=== PATIENT | female | born 1975 | race Caucasian/White ===

== ENCOUNTER 2024-12-03 13:04 | Outpatient (AMB) | payer BC, SELFPAY ==
--- NOTE | 2024-12-03 13:05 | MHC.PC.OV ---
Vital Signs 12/03/24 13:08 Height 5 ft 5.75 in Weight 153 lb BMI 24.9 BP 138/80 Respiration 14 Pulse 96 Pulse Source Pulse Oximeter Temp 98.0 F Temp Source Temporal Artery Scan Pulse Oximetry (%) 99 Oxygen Delivery Method Room Air Intake Visit Reasons: Establish [facility] [place] Director Of Training Required: No Accompanied by: Self / Same As Patient Allergies No Known Allergies Allergy (Verified 12/03/24 13:25) Medication List - Last Reconciled 12/03/24 by Evelyn Parsons PA-C lisinopril 5 mg PO DAILY oxymetazoline 1% (Rhofade) 1 appl topical QAM Tobacco use date assessed: 12/03/24 Dental Screening Dental Screen Date: 12/03/24 Did you have a dental visit in the last 12 months?: Yes Did you have a dental problem in the last 6 months where you did not have access to dental care?: No Was dental information given to patient?: Patient has dentist HPI Establish [facility] [place] HPI Details The patient is a 49-year-old female presenting to [facility] and for an annual physical exam. She decided to switch providers due to dissatisfaction with her previous practice at [facility], citing difficulty scheduling appointments and long wait times. The patient's last physical was over a year ago, at which time her blood pressure was noted to be high. She currently takes lisinopril for hypertension, and her blood pressure is well-controlled. She reports concerns about her toenails, which she believes have had a fungus since [employer], and currently uses vinegar on them. A talkback host previously tested a clipping that came back negative for fungus. She also notes that two of her toes are swollen. She recently saw a talkback host for a swollen sweat gland on her foot, which was treated with acid and has since resolved. The patient has a history of rosacea, for which she was prescribed Rhofade cream. She has not been taking it recently as her symptoms have improved since she stopped drinking alcohol about a year and a half ago. She is interested in a referral to a new nursing program manager for her rosacea and a few other skin spots of concern. 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 She is a former smoker, having quit a long time ago. Her training for a [employer] was recently impacted by a hip flexor strain. The patient has declined a mammogram and colonoscopy at this visit. She also declined cervical cancer screening. There is no family history of colon, breast, cervical, or thyroid cancer. Social History - Tobacco Use: Former smoker, quit a long time ago. - Alcohol Use: Reports she was drinking heavily but stopped about a year and a half ago. - Exercise: Reports she is trying to be healthier, ran a 5K, and is training for another one. - Diet: Reports being on a diet and trying to make better food choices. [facility] Medical History (Updated 12/03/24 @ 14:46 by Evelyn Parsons PA-C) Cervical cancer screening declined (~12/03/24) Psoriasis Hypertension Annual physical exam Thyroid nodule Rosacea Colon cancer screening declined (~12/03/24) Mammogram declined (~12/03/24) Onychomycosis Family History Father BP (high blood pressure) CHF (congestive heart failure) Mother No problems noted. Social History Housing: House Alcohol intake: current Alcohol intake frequency: does not drink Patient Tobacco Use Status: Former Tobacco user service: No Current occupational status: employed Cognitive needs: No Hearing needs: No Vision needs: Yes (rx glasses) Questionnaire PHQ-9 Over the last 2 weeks, how often have you been bothered by any of the following problems? 1. Little interest or pleasure in doing things: not at all 2. Feeling down, depressed, or hopeless: not at all 3. Trouble falling or staying asleep, or sleeping too much: not at all 4. Feeling tired or having little energy: not at all 5. Poor appetite or overeating: not at all 6. Feeling bad about yourself - or that you are a failure or have let yourself or your family down: not at all 7. Trouble concentrating on things, such as reading the newspaper or watching television: not at all 8. Moving or speaking so slowly that other people could have noticed. Or the opposite - being so fidgety or restless that you have been moving around a lot more than usual: not at all 9. Thoughts that you would be better off or of hurting yourself in some way: not at all Total score: 0 Depression Screening Interpretation: Negative Depression Screening Done: Yes 03625 - PHQ-9 Billing: Yes Source: Developed by Drs. Javed Lee, Uma Mon, Lázaro Kennedy and colleagues, with an educational shelly from [employer]. Thrive Questionnaire Date Thrive assessed: 12/03/24 I am a: Patient What is your living situation today?: I have a steady place to live Within the past 12 months, did the food you bought not last and you didn't have the money to get more?: Never true Within the past 12 months, did you worry whether your food would run out before you got money to buy more?: Never true Do you have trouble paying for medicines?: No Do you have trouble getting transportation to medical appointments?: No Do you have trouble paying your heating and electricity bill?: No Do you have trouble taking care of your child, family member or friend?: No Do you have trouble with day-to-day activities such as bathing, preparing meals, shopping, managing finances, etc.?: No Are you currently unemployed and looking for a job?: No Are you interested in more education?: No Please select the resources that you would like help with: None THRIVE Score: 0 AUDIT C Alcohol Use Questionnaire (AUDIT-C) 1. How often do you have a drink containing alcohol?: Never 3. How often do you have six or more drinks on one occasion?: Never Total Score: 0 Score Reviewed/Action Taken: No RIK-7 AMB Questionnaire RIK-7 Date RIK - 7 assessed: 12/03/24 Feeling nervous, anxious, or on edge: 0 = Not at all Not being able to stop or control worryin = Not at all Worrying too much about different things: 0 = Not at all Trouble relaxin = Not at all Being so restless that it is hard to sit still: 0 = Not at all Becoming easily annoyed or irritable: 0 = Not at all Feeling afraid as if something awful might happen: 0 = Not at all Total RIK-7 score (0-4 normal; 5-9 mild; 10-14 moderate; 15-21 severe): 0 Source: Developed by Drs. Javed Lee, Uma Mon, Lázaro Kennedy and colleagues, with an educational shelly from [employer]. RIK-7 Assessment Billing RIK-7 Assessment Tool: RIK-7 Assessment 01205 Review of Systems Const Details: - Constitutional: Denies unintentional weight loss. - HEENT: Reports psoriasis in her ear. - Denies problems with hearing or vision. - Skin: Reports rosacea on her face, which has improved. - Reports having a couple of skin spots of concern. - GI: Denies abdominal pain, black or bloody stools. - Extremities: Reports swelling in two toes. All systems reviewed & are unremarkable except as noted in HPI and below Physical exam (Primary Care) Vital Signs: Last Vital Signs Temp 98.0 F 12/03/24 13:08 Pulse 96 12/03/24 13:08 Resp 14 12/03/24 13:08 BP 138/80 12/03/24 13:08 Pulse Ox 99 12/03/24 13:08 Oxygen Delivery Method Room Air 12/03/24 13:08 Care Plan Goal for BP management: <140/90 at Goal BMI result Body Mass Index 24.9 Normal BMI Tobacco/Smoking Status: Tobacco use Status Tobacco use date assessed 12/03/24 12/03/24 13:15 Patient Tobacco Use Status Former Tobacco user 12/03/24 13:15 PHQ-9: PHQ-9 Score PHQ-9: Total score 0 12/03/24 13:26 Depression Screening Interpretation: Negative Thrive Assessment: Date of Thrive Assessment Date Thrive assessed 12/03/24 12/03/24 13:15 Const Other: Appearance: Alert. Oriented X3. No acute distress. Head: Normal external exam. Normocephalic. Atraumatic. Eyes: Pupils are equal, round, and reactive to light. Extraocular movements intact. Conjunctiva and sclera normal. Eyelids normal. Ears: External auditory canal normal. Tympanic membranes normal. Psoriasis noted in the ear. Throat: Pharynx normal. Uvula midline. Moist mucous membranes. Neck: Normal inspection. Neck supple. Full range of motion. No adenopathy. Possible thyroid nodule. No meningeal signs. No neck mass noted. Cardiovascular: Normal heart rate and rhythm. Heart sound normal. No murmurs noted. Pulses normal throughout. Respiratory: No respiratory distress. Painless inspiration. Breath sounds normal. No wheezes/rales/rhonchi noted. Chest nontender. No accessory muscle usage noted or decreased air movement noted. Abdomen: Soft and nontender. Bowel sounds normal in all 4 quadrants. No distention noted. No organomegaly noted. No visible injury noted. Back: No costovertebral angle tenderness. Full range of motion noted. Skin: Skin warm and dry. Normal skin color. Normal skin turgor. No rashes/lesions/lacerations noted. Extremities: No lower extremity edema. Extremities exhibit normal range of motion. Extremities nontender. Two toes noted to be swollen. Neuro: Oriented X 3. No motor deficit. No sensory deficit. Reflexes normal. Office Procedures Flu Questionnaire Does the patient have a severe egg allergy?: No Does the patient have severe life threatening allergies?: No Does the patient have a fever or illness today?: No Has the patient ever had Guillain-Eaton Syndrome?: No Has the patient ever had any past reaction to a flu shot?: No Immunizations Fluarix [id number] (PF) 45 mcg (15 mcg x 3)/0.5 mL IM syringe Performing Provider: Evelyn Parsons PA-C [facility] Documented (not given) by: LINDA Iraheta on 12/03/24 13:16 Reason Not Given: Patient Refused Results Reviewed Results Reviewed: - Tests and diagnostics: A prior toenail clipping tested by a talkback host was negative for fungus. Coding Level of Care Code New Pt Level 4 (05602) New Pt Prev Care 40-64y(11621) Diagnoses Annual physical exam Z00.00 Hypertension I10 Onychomycosis B35.1 Rosacea L71.9 Psoriasis L40.9 Thyroid nodule E04.1 Colon cancer screening declined Z53.20 Mammogram declined Z53.20 Cervical cancer screening declined Z53.20 Additional Codes RIK-7 Assessment Billing - RIK-7 Assessment Tool: RIK-7 Assessment 79086 ([id number]) PHQ-9 - 14297 - PHQ-9 Billing: Yes ([id number]) Time Spent (min) 60 Assessment & Plan Assessment & Plan (1) Annual physical exam: Code(s): Z00.00 - Encounter for general adult medical examination without abnormal findings Category: Medical Plan: The patient is establishing care. Comprehensive lab work will be ordered, including a CBC, CMP, magnesium, vitamin B12, vitamin D, thyroid panel, hemoglobin A1c, cholesterol panel, and urinalysis. The patient declined a mammogram and colonoscopy at this time, which will be deferred and re-addressed at a future visit. She also deferred a cervical cancer screening. The patient will follow up annually or as needed. (2) Hypertension: Code(s): I10 - Essential (primary) hypertension Category: Medical Plan: The patient's blood pressure is well controlled on lisinopril. A refill for lisinopril will be sent to the pharmacy. (3) Onychomycosis: Code(s): B35.1 - Tinea unguium Category: Medical Plan: The patient has a long-standing history of concern for toenail fungus, with associated swelling of two toes noted on exam. A referral will be placed to a podiatry office in [place] for further evaluation and management. (4) Rosacea: Code(s): L71.9 - Rosacea, unspecified Category: Medical Plan: The patient has a history of rosacea, which has improved since cessation of alcohol. She has some skin spots she is also concerned about. A referral to [facility] will be provided for further evaluation. (5) Psoriasis: Code(s): L40.9 - Psoriasis, unspecified Category: Medical Plan: The patient reports intermittent psoriasis in her ear, which she treats as needed with a steroid cream. She will continue to use the cream as needed and can request a refill if necessary. (6) Thyroid nodule: Code(s): E04.1 - Nontoxic single thyroid nodule Category: Medical Plan: A possible small thyroid nodule was palpated on physical exam. A thyroid ultrasound will be ordered to further evaluate this finding. If the ultrasound is abnormal, a referral will be made to endocrinology. (7) Colon cancer screening declined: Onset Date: ~12/03/24 Code(s): Z53.20 - Procedure and treatment not carried out because of patient's decision for unspecified reasons Category: Medical Plan: Patient understands the importance of colon cancer screening. Patient declines at this time. (8) Mammogram declined: Onset Date: ~12/03/24 Code(s): Z53.20 - Procedure and treatment not carried out because of patient's decision for unspecified reasons Category: Medical Plan: Patient understands the importance of mammogram screening. Patient declines at this time. (9) Cervical cancer screening declined: Onset Date: ~12/03/24 Code(s): Z53.20 - Procedure and treatment not carried out because of patient's decision for unspecified reasons Category: Medical Plan: Patient understands the importance of cervical cancer screening. Patient declines at this time. Plan Plan Patient was informed and verbally consented to the use of an ambient scribe for clinic note documentation during this visit. 1. Annual Physical Exam / Health Maintenance The patient is establishing care. Comprehensive lab work will be ordered, including a CBC, CMP, magnesium, vitamin B12, vitamin D, thyroid panel, hemoglobin A1c, cholesterol panel, and urinalysis. The patient declined a mammogram and colonoscopy at this time, which will be deferred and re-addressed at a future visit. She also deferred a cervical cancer screening. The patient will follow up annually or as needed. 2. Hypertension The patient's blood pressure is well controlled on lisinopril. A refill for lisinopril will be sent to the pharmacy. 3. Onychomycosis, Suspected The patient has a long-standing history of concern for toenail fungus, with associated swelling of two toes noted on exam. A referral will be placed to a podiatry office in [place] for further evaluation and management. 4. Thyroid Nodule, Suspected A possible small thyroid nodule was palpated on physical exam. A thyroid ultrasound will be ordered to further evaluate this finding. If the ultrasound is abnormal, a referral will be made to endocrinology. 5. Rosacea The patient has a history of rosacea, which has improved since cessation of alcohol. She has some skin spots she is also concerned about. A referral to [facility] will be provided for further evaluation. 6. Psoriasis Of External Ear The patient reports intermittent psoriasis in her ear, which she treats as needed with a steroid cream. She will continue to use the cream as needed and can request a refill if necessary. I introduced myself and established care with the patient, who was seeking a new provider after negative experiences at her prior clinic. We agreed to conduct this visit as her annual physical and discussed the orders for comprehensive lab work. I addressed her concerns about her toenails and am placing a referral to podiatry. I informed the patient of a possible thyroid nodule found on exam and explained the plan to order a thyroid ultrasound for further investigation. I explained that if the ultrasound is abnormal, I will refer her to an plant control operator. Regarding her dermatological concerns, I am placing a referral to a nursing program manager for her rosacea and other spots of concern. We discussed preventative screenings, and I documented her decision to decline a mammogram and colonoscopy at this time, with a plan to revisit this in the future. I provided the patient with instructions for her fasting lab work and advised her on the expected timeline for her referrals to call. I encouraged her to sign up for the patient portal for ease of communication and refill requests. Orders: Orders Influenza [id number] Immunization Today Z23 - Encounter for immunization C Reactive Protein Today Z00.00 - Encounter for general adult medical examination without abnormal findings Liver Panel Today Z00.00 - Encounter for general adult medical examination without abnormal findings Magnesium Today Z00.00 - Encounter for general adult medical examination without abnormal findings Vitamin D 25-OH Total Today Z00.00 - Encounter for general adult medical examination without abnormal findings US thyroid Today E04.1 - Nontoxic single thyroid nodule Complete Blood Count Auto Diff Today Z00.00 - Encounter for general adult medical examination without abnormal findings Comprehensive [place]. Panel Fast Today Z00.00 - Encounter for general adult medical examination without abnormal findings Vitamin B12 and Folate Today Z00.00 - Encounter for general adult medical examination without abnormal findings TSH reflex Free T4 Today Z00.00 - Encounter for general adult medical examination without abnormal findings UA CC w/rflx Micro + Cult Today Z00.00 - Encounter for general adult medical examination without abnormal findings Hemoglobin A1c Today Z00.00 - Encounter for general adult medical examination without abnormal findings Lipid Panel Today Z00.00 - Encounter for general adult medical examination without abnormal findings Referrals Podiatry Referral B35.1 - Tinea unguium Dermatology Referral B35.1 - Tinea unguium, L71.9 - Rosacea, unspecified Medications: New lisinopril 5 mg PO DAILY 90 tabs 3RF Patient Instructions: - Please go to the lab for blood work. - You must fast for 10 to 12 hours before the test, meaning nothing to eat or drink except for water or black coffee. - A referral has been sent for a thyroid ultrasound. - Please try to get your blood work done before the ultrasound appointment. - A referral has been sent to a talkback host for your toenail concerns. - You should receive a call to schedule these appointments within a month. - A prescription refill for lisinopril will be sent to your pharmacy. - A referral to a nursing program manager ([facility]) has been placed. - You may call them to schedule an appointment. - Please sign up for the patient portal using your email and medical record number to easily request refills and communicate with the office. - Please follow up in one year for your next annual physical, or sooner if any new issues arise.
[2024-12-03 13:08] VITALS: BP 138/80; PULSE 96; RESP 14; TEMP 36.7; O2SAT 99; BMI 24.9
--- OUTSIDE RECORDS SUMMARY | 2024-12-03 16:33 | XMS_ITS | Clinical Summary ---
Author Organization [address] Address [address] [place] [phone] Phone Care Team Providers Care Electric Tool Repairer Name Role Phone Danay Renteria MD Primary Care Prov ider Allergies No known active allergies Medications oxymetazoline (Rhofade) 1 % cream 11/25/2021 Active lisinopriL (PRINIVIL,ZESTRI L) 5 mg tablet Take 1 tablet (5 mg total) by mouth 1 (one) time each day. 90 each 1 07/25/2024 Active Active Problems Problem Noted Date Diagnosed Date Overweight (BMI 25.0-29.9) 07/25/2024 Elevated LFTs 07/05/2023 Essential hypertension 06/08/2023 Assessment & Plan (01/17/2024 3:06 PM EST): Blood pressure is well-controlled on lisinopril 5 mg. Currently 132/70. Will continue same medication. She is encouraged to follow a low-salt diet. Will recheck CMP and lipid profile before her next visit. Will follow-up in 6 months. Orders: Comprehensive metabolic panel; Future Lipid panel with reflex to direct LDL; Future Medically noncompliant 01/25/2022 Overview (12/13/2023): Refuses screening mammo and NET LEAD ARCHITECT exam Psoriasis of scalp 09/30/2014 Overview (12/13/2023): Also ears, used to see Derm [place] Rosacea 09/30/2014 Overview (12/13/2023): controlled Encounters Date Type Department Care Team Description 11/12/2024 8:45 AM EDT Office Visit Orthopedic Surgery [facility] [address] [phone] Sebastián Johnson, DPM Metatarsalgia of left foot (Primary Dx); Eccrine poroma of foot, left; Pain in both feet 10/29/2024 9:15 AM EDT Office Visit Orthopedic Surgery [place] [phone] [phone] Sebastián Johnson, DPM Pain in both feet (Primary Dx); Metatarsalgia of left foot; Eccrine poroma of foot, left; Dermatophytosis, nail 10/24/2024 2:30 PM EDT Office Visit Orthopedic [facility] [address] [phone] Sebastián Johnson, DPM Pain in both feet (Primary Dx); Plantar wart of left foot from Last 3 Months Immunizations Immunization Administration Dates Next Due Pfizer SARS-CoV-2 COVID-19, mRNA, LNP-S, preservative free 06/21/2020 Tdap Tetanus diptheria acell ular pertussis (Boostrix; Adacel) 7yo and older 10/22/2020,08/04/2010 Surgical History Surgery Date Site/Laterality Comments WISDOM TOOTH EXTRACTION PROCEDURE: HISTORICAL WISDOM TEETH EXTRACTION Medical History Medical History Date Comments Other infants, 2,500 or more grams(765.19) DX:Other infants, 2, 500 or more grams(765.19); COMMENT: 36 weeks Rosacea 09/30/2014 DX:Rosacea; COMM ENT: controlled Psoriasis of scalp 09/30/2014 DX:Psoriasis of scalp; COMMENT: Also ears, used to see Derm [place] Medically noncompliant 01/25/2022 DX:Medica lly noncompliant; COMMENT: Refuses screening mammo and NET LEAD ARCHITECT exam Essential hypertension 06/08/2023 DX:Essent ial hypertension Elevated LFTs 07/05/2023 DX:Elevated LFTs Family History Medical History Relation Name Comments Hypertension Brother Clayton No Known Problems Daughter : 01/29/2006 Hypertension Father Other: Asbestos Maternal Grandfather No Known Problems Maternal Grandmother No Known Problems Mother Stroke Paternal Grandfather survive d this event No Known Problems Son : 08/07/2009 Breast cancer Neg Hx Colon cancer Neg Hx Coronary artery disease Neg Hx Diabetes Neg Hx Heart attack Neg Hx Ovarian cancer Neg Hx Relation Name Status Comments Brother Clayton Alive Daughter : 01/29/2006 Alive Father Alive Maternal Grandfather Maternal Grandmother Mother Alive Paternal Grandfather Paternal Grandmother Son : 08/07/2009 Alive Social History Tobacco Use Types Packs/Day Years Used Date Smoking Tobacco: Former Cigarettes Q uit: 02/07/2001 Smokeless Tobacco: Never Tobacco Cessation:Counseling Given: Not Answered Alcohol Use Standard Drinks/Week Comments Yes 0 (1 standard drink = 0.6 oz pur e alcohol) Housing Instability Answer Date Recorde d Are you worried that in the next 2 months you may not have stable housing? No 01/17/2024 Food Access & Nutrition Answer Date Rec orded Do you have access to a vari ety of food including fruits and vegetables? Yes 01/17/2024 Access to Healthcare Answer Date Record ed Within the last 3 months, ho w many times did you visit the emergency department for your medical care? 0 01/17/2024 Health Literacy Answer Date Recorded How often do you need to hav e someone help you when you read instructions, pamphlets, or other written material from your doctor or pharmacy? Never 01/17/2024 Caregiver: How often do you need to have someone help you when you read instructions, pamphlets, or other written material from your doctor or pharmacy? Not on file 01/17/2024 Financial Risk Answer Date Recorded How hard is it for you to pa y for the very basics like food, housing, medical care, and air conditioning / heating? Not very hard 01/17/2024 Transportation Answer Date Recorded Has the lack of transportati on kept you from meetings, work, or from getting things needed for daily living? No Has the lack of transportati on kept you from medical appointments or from getting medications? No 01/17/2024 Social Isolation Answer Date Recorded How often do you feel lonely or isolated from th ose around you? Never 01/17/2024 Food Risk Answer Date Recorded Within the past 12 months we worried whether our food would run out before we got money to buy more. Never true 01/17/2024 Within the past 12 months th e food we bought just didn't last and we didn't have money to get more. Never true 01/17/2024 Dependent Care Answer Date Recorded Do you need help finding or paying for care for your loved ones. For example, early childhood services coordinator or elderly care for an older adult? No 01/17/2024 Education Answer Date Recorded Do you think completing more education or training, like finishing a GED, going to college, or learning a trade, would be helpful for you? No 01/17/2024 Employment and Income Answer Date Recor ded During the last four weeks, have you been actively looking for work? No 01/17/2024 Living Situation Answer Date Recorded What is your living situation? Unrecognized valu e 01/17/2024 Comments No Sex and Gender Information Value Date Recorded Sex Assigned at Not on file Legal Sex Female 4:03 AM EST Gender Identity Not on file Sexual Orientation Not on file Obstetrics History Last Filed Vital Signs Vital Sign Reading Time Taken Comments Blood Pressure 130/77 07/25/2024 7:55 AM EDT Pulse 87 07/25/2024 7:55 AM EDT Temperature 35.6 C (96.1 F) 07/25/2024 7:55 AM EDT Respiratory Rate 14 07/25/2024 7:55 AM EDT Oxygen Saturation 100% 07/25/2024 7:55 AM EDT Inhaled Oxygen Concentration - - Weight 72.1 kg (159 lb) 07/25/2024 7:55 AM EDT Height 167.6 cm (5' 6 ) 07/25/2024 7:55 AM EDT Body Mass Index 25.66 07/25/2024 7:55 AM EDT Plan of Treatment Upcoming Encounters Date Type Department Care Team (Late st Contact Info) Description 02/11/2025 8:30 AM EST Office Visit Adult Medicine [address] [phone] Danay Renteria MD [address] [place] [phone] Health Maintenance Due Date Last Done Comments Colorectal Cancer Screening: Colonoscopy 1976 Hepatitis B Vaccines (1 of 3 - 19+ 3-dose series) 07/20/1995 Cervical Cancer Screening: Pap Smear 06/08/2016 06/08/2013 HIV Screening 01/16/2022 Hepatitis C Screening 01/16/2022 Depression Screening 02/08/2024 01/17/2024 Breast Cancer Screening 01/16/2025 Post poned from 1976 (Patient Refused) Social Influencers of Health Screening 01/16/2025 01/17/2024 Hypertension/CHF/CAD Annual BMP Blood Test 07/05/2025 07/05/2024, 06/30/2023 Cholesterol Screening (Lipid Panel) 07/05/2029 07/05/2024, 06/30/2023, 06/30/2023 DTaP,Tdap,and Td Vaccines (3 - Td or Tdap) 10/22/2030 10/22/2020, 08/04/2010 RSV Immunization Adult Patients (1 - 1-dose 75+ series) 07/20/2051 COVID-19 Vaccine Discontinued 07/12/2020, 06/21/2020 HIB Vaccines Aged Out No longer eligi ble based on patient's age to complete this topic HPV Vaccines Aged Out No longer eligi ble based on patient's age to complete this topic Hepatitis A Vaccines Aged Out No long er eligible based on patient's age to complete this topic IPV Vaccines Aged Out No longer eligi ble based on patient's age to complete this topic Influenza Vaccine Discontinued MMR Vaccines Aged Out No longer eligi ble based on patient's age to complete this topic Meningococcal ACWY Vaccine Aged Out N o longer eligible based on patient's age to complete this topic Meningococcal B Vaccine Aged Out No l onger eligible based on patient's age to complete this topic Pneumococcal Vaccine: Pediatrics (0 to 5 Years) and At-Risk Patients (6 to 49 Years) Aged Out No longer eligible b ased on patient's age to complete this topic RSV Immunization Patients Under 20 months Aged Out No longer eligible b ased on patient's age to complete this topic Varicella Vaccines Aged Out No longer eligible based on patient's age to complete this topic Procedures Procedure Name Priority Date/Time Associated Diagnosis Comments COMPREHENSIVE METABOLIC PANEL Routine 07/05/2024 9:46 AM EDT Essential hypertension LIPID PANEL WITH REFLEX TO DIRECT LDL Routine 07/05/2024 9:46 AM EDT Essential hypertension HM PAP SMEAR Routine 06/08/2013 from Last 3 Months or Most Recently Relevant to Health Maintenance Results * (ABNORMAL) Lipid panel with reflex to direct LDL (07/05/2024 9:46 AM EDT) Cholesterol 217(H) 0 - 200 mg/dL LAB CHEMISTRY METHOD 07/05/2024 1:10 PM EDT [facility] Triglycerides 78 0 - 150 mg/dL LAB CHEMISTRY METHOD 07/05/2024 1:10 PM EDT [facility] HDL 81 >=40 mg/dL LAB CHEMISTRY METHOD 07/05/2024 1:10 PM EDT [facility] LDL Calculated 120(H) 0 - 100 mg/dL LAB CHEMISTRY METHOD 07/05/2024 1:10 PM [facility] VLDL Cholesterol Keo 15.6 mg/dL LAB CHEMISTRY METHOD 07/05/2024 1:10 PM [facility] Non HDL Chol. (LDL+VLDL) 136 <145 mg/dL LAB CHEMISTRY METHOD 07/05/2024 1:10 PM EDT [facility] Chol/HDL Ratio 2.7 0.0 - 4.4 LAB CHEMISTRY METHOD 07/05/2024 1:10 PM [facility] Blood Venous blood specimen / Unknown Venipuncture / Unknown 07/05/2024 9:46 AM EDT 07/05/2024 9:46 AM EDT us Danay Renteria MD LAB BLOOD ORDERABL ES Final Result [facility] [address] [place] [address], * Comprehensive metabolic panel (07/05/2024 9:46 AM EDT) Sodium 140 133 - 145 mmol/L LAB CHEMISTRY METHOD 07/05/2024 1:01 PM [facility] Potassium 4.6 3.5 - 5.5 mmol/L LAB CHEMISTRY METHOD 07/05/2024 1:01 PM [facility] Chloride 105 96 - 110 mmol/L LAB CHEMISTRY METHOD 07/05/2024 1:01 PM [facility] CO2 29 21 - 32 mmol/L LAB CHEMISTRY METHOD 07/05/2024 1:01 PM [facility] Anion Gap 6 3 - 11 LAB CHEMISTRY METHOD 07/05/2024 1:01 PM [facility] Glucose 89 70 - 100 mg/dL LAB CHEMISTRY METHOD 07/05/2024 1:01 PM [facility] BUN 12 5 - 25 mg/dL LAB CHEMISTRY METHOD 07/05/2024 1:01 PM [facility] Creatinine 0.66 0.50 - 1.10 mg/dL LAB CHEMISTRY METHOD 07/05/2024 1:01 PM [facility] eGFR 109 >=60 mL/min/1. 73m2 LAB CHEMISTRY METHOD 07/05/2024 1:01 PM [facility] Comment:Calculation based on the Chronic Kidney Disease Epidemiology Collaboration (CKD-EPI) equation refit without adjustment for race. BUN/Creatinine Ratio 18.2 LAB CHEMISTRY METHOD 07/05/2024 1:01 PM [facility] Calcium 9.7 8.5 - 10.5 mg/dL LAB CHEMISTRY METHOD 07/05/2024 1:01 PM [facility] AST (SGOT) 17 10 - 42 unit/L LAB CHE[facility]STRY [facility] 27 10 - 60 unit/L LAB CHEMISTRY METHOD 07/05/2024 1:01 PM T [facility] Alkaline Phosphatase 74 42 - 121 unit/L LAB CHEMISTRY METHOD 07/05/2024 1:01 PM T [facility] Total Protein 7.6 6.0 - 8.0 g/dL LAB CHEMISTRY METHOD 07/05/2024 1:01 PM EDT [facility] Albumin 4.1 3.2 - 5.0 g/dL LAB CHEMISTRY METHOD 07/05/2024 1:01 PM [facility] Total Bilirubin 0.4 0.0 - 1.4 mg/dL LAB CHEMISTRY METHOD 07/05/2024 1:01 PM [facility] Blood Venous blood specimen / Unknown Venipuncture / Unknown 07/05/2024 9:46 AM EDT 07/05/2024 9:46 AM EDT Danay Renteria MD LAB BLOOD ORDERABL ES Final Result [facility] [address] [place] [address], * Pap Smear (06/08/2013) Pap smear no interpretation , abstracted us Historical Provider HEALTH MAINTENANCE Final Result from Last 3 Months or Most Recently Relevant to Health Maintenance Insurance [facility] Care Teams Electric Tool Repairer Relationship Specialty Start Date End Date Danay Renteria MD [address] [place] [phone] PCP - General Internal Medicine 09/07/21
--- OUTSIDE RECORDS SUMMARY | 2024-12-03 16:33 | XMS_ITS ---
Author Name [facility] Organization Unknown Care Team Organization Name Specialty Phone Email Start Date End Da te [facility] Danay Mars Primary Care 04/14/2022 09/26/2023 [facility] Termed, PROVIDER Primary Care 12/15/202109/07
== END 2024-12-03 13:47 | disposition home or self-care (01) ==
PROVIDERS: PCP Physician Assistant Medical; Visit Provider Physician Assistant Medical
DX: Z00.00 Encounter for general adult medical examination without abnormal findings (principal); E04.1 Nontoxic single thyroid nodule; I10 Essential (primary) hypertension; L71.9 Rosacea, unspecified; L40.9 Psoriasis, unspecified; B35.1 Tinea unguium; Z53.20 Procedure and treatment not carried out because of patient's decision for unspecified reasons; Z23 Encounter for immunization

== ENCOUNTER → 2024-12-03 13:04 | Outpatient (BNVA) | payer BC, SELFPAY | PROVIDERS: PCP Physician Assistant Medical; Visit Provider Physician Assistant Medical | DX: Z00.00 Encounter for general adult medical examination without abnormal findings (principal); I10 Essential (primary) hypertension; B35.1 Tinea unguium; L71.9 Rosacea, unspecified; L40.9 Psoriasis, unspecified; E04.1 Nontoxic single thyroid nodule; Z28.21 Immunization not carried out because of patient refusal; Z53.20 Procedure and treatment not carried out because of patient's decision for unspecified reasons; Z87.891 Personal history of nicotine dependence; Z79.899 Other long term (current) drug therapy | CPT/HCPCS: 96127 ==

== ENCOUNTER 2024-12-14 07:18 | Outpatient (REF) | payer BC, SELFPAY ==
--- OUTSIDE RECORDS SUMMARY | 2024-12-14 07:22 | XMS_ITS | Clinical Summary ---
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 Psoriasis of scalp 09/30/2014 Overview (12/13/2023): Also ears, used to see Derm in [place] Rosacea 09/30/2014 Overview (12/13/2023): controlled Encounters Date Type Department Care Team Description 11/12/2024 8:45 AM EDT Office Visit Orthopedic Surgery [facility] [address] [phone] Sebastián Johnson, DPM Metatarsalgia of left foot (Primary Dx); Eccrine poroma of foot, left; Pain in both feet 10/29/2024 9:15 AM EDT Office Visit Orthopedic Surgery [place] [phone] [phone] Sebastián Johnson, DPM Pain in both feet (Primary Dx); Metatarsalgia of left foot; Eccrine poroma of foot, left; Dermatophytosis, nail 10/24/2024 2:30 PM EDT Office Visit Orthopedic Surgery [facility] [address] [phone] Sebastián Johnson, DPM Pain in both feet [...] lly noncompliant; COMMENT: Refuses screening mammo and 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 For example, maternal child nurse or elderly care for an older adult? [...] 8:30 AM EST Office Visit Adult Medicine [address] [phone] Danay Renteria MD [address] [place] [phone] Health Maintenance Due Date Last Done Comments [...] LAB CHEMISTRY METHOD 07/05/2024 1:10 PM EDT [facility] Triglycerides 78 0 - 150 mg/dL LAB CHEMISTRY METHOD 07/05/2024 1:10 PM EDT [facility] HDL 81 >=40 mg/dL LAB CHEMISTRY METHOD 07/05/2024 1:10 PM EDT [facility] LDL Calculated 120(H) 0 - 100 mg/dL LAB CHEMISTRY METHOD 07/05/2024 1:10 PM [facility] VLDL Cholesterol Keo 15.6 mg/dL LAB CHEMISTRY METHOD 07/05/2024 1:10 PM [facility] Non HDL Chol. (LDL+VLDL) 136 <145 mg/dL LAB CHEMISTRY METHOD 07/05/2024 1:10 PM EDT [facility] Chol/HDL Ratio 2.7 0.0 - 4.4 LAB CHEMISTRY METHOD 07/05/2024 1:10 PM [facility] Blood Venous blood specimen / Unknown Venipuncture / Unknown 07/05/2024 9:46 AM EDT 07/05/2024 9:46 AM EDT us Danay Renteria MD LAB BLOOD ORDERABL ES Final Result [facility] [address] [place] [address], * Comprehensive metabolic panel (07/05/2024 9:46 AM EDT) Sodium 140 133 - 145 mmol/L LAB CHEMISTRY METHOD 07/05/2024 1:01 PM [facility] Potassium 4.6 3.5 - 5.5 mmol/L LAB CHEMISTRY METHOD 07/05/2024 1:01 PM [facility] Chloride 105 96 - 110 mmol/L LAB CHEMISTRY METHOD 07/05/2024 1:01 PM [facility] CO2 29 21 - 32 mmol/L LAB CHEMISTRY METHOD 07/05/2024 1:01 PM [facility] Anion Gap 6 3 - 11 LAB CHEMISTRY METHOD 07/05/2024 1:01 PM [facility] Glucose 89 70 - 100 mg/dL LAB CHEMISTRY METHOD 07/05/2024 1:01 PM [facility] BUN 12 5 - 25 mg/dL LAB CHEMISTRY METHOD 07/05/2024 1:01 PM [facility] Creatinine 0.66 0.50 - 1.10 mg/dL LAB CHEMISTRY METHOD 07/05/2024 1:01 PM [facility] eGFR 109 >=60 mL/min/1. 73m2 LAB CHEMISTRY METHOD 07/05/2024 1:01 PM [facility] Comment:Calculation based on the Chronic Kidney Disease Epidemiology Collaboration (CKD-EPI) equation refit without adjustment for race. BUN/Creatinine Ratio 18.2 LAB CHEMISTRY METHOD 07/05/2024 1:01 PM [facility] Calcium 9.7 8.5 - 10.5 mg/dL LAB CHEMISTRY METHOD 07/05/2024 1:01 PM [facility] AST (SGOT) 17 10 - 42 unit/L LAB CHEMISTRY METHOD 07/05/[facility]24 [facility] ([facility]PT[facility] 27 10 - 60 unit/L LAB CHEMISTRY METHOD 07/05/2024 1:01 PM T [facility] Alkaline Phosphatase 74 42 - 121 unit/L LAB CHEMISTRY METHOD 07/05/2024 1:01 PM T [facility] Total Protein 7.6 6.0 - 8.0 g/dL LAB CHEMISTRY METHOD 07/05/2024 1:01 PM EDT [facility] Albumin 4.1 3.2 - 5.0 g/dL LAB CHEMISTRY METHOD 07/05/2024 1:01 PM [facility] Total Bilirubin 0.4 0.0 - 1.4 mg/dL LAB CHEMISTRY METHOD 07/05/2024 1:01 PM [facility] Blood Venous blood specimen / Unknown Venipuncture / Unknown 07/05/2024 9:46 AM EDT 07/05/2024 9:46 AM EDT Danay Renteria MD LAB BLOOD ORDERABL ES Final Result [facility] [address] [place] [address], * Pap Smear (06/08/2013) Pap smear no interpretation , abstracted us Historical Provider HEALTH MAINTENANCE Final Result from Last 3 Months or Most Recently Relevant to Health Maintenance Insurance [facility] Care Teams Corporate Recruiter Relationship Specialty Start Date End Date Danya Renteria MD [address] [place] [phone] PCP - General Internal Medicine 09/07/21
[2024-12-14 10:23] LABS: MANUAL DIFF FLAG NO
[2024-12-14 10:37] LABS: Hematocrit 39.0 % (37.0-47.0); Hemoglobin 12.5 g/dl (12.0-16.0); Imm Gran Abs Auto 0.03 X10*3/uL (0.00-0.03); Imm Gran Pct Auto 0.3 % (0.0-0.4); Lymphocytes Absolute Auto 3.0 X10*3/uL (1.2-4.9); Mean Corpuscular HGB Conc 32.1 g/dl (31.0-35.0); Mean Corpuscular Hemoglobin 28.9 pg (27.0-33.0); Mean Corpuscular Volume 90.1 fL (80.0-98.0); NRBC Abs Auto 0.000 X10*3/uL (0.0-0.012); NRBC Pct Auto 0.0 /100WBC (0.0-0.2); Platelet Count 396 X10*3/uL (160-400); Red Blood Count 4.33 X10*6/uL (4.20-5.50); White Blood Count 9.4 X10*3/uL (4.8-10.8)
[2024-12-14 10:44] LABS: Alanine Aminotransferase 15 U/L (0-31); Albumin Level 4.4 g/dL (3.5-5.0); Alkaline Phosphatase 66 U/L (39-117); Anion Gap 12 (12-20); Aspartate Amino Transferase 20 U/L (5-31); Blood Urea Nitrogen 13 mg/dL (9-16); Calcium 9.3 mg/dL (8.4-10.2); Carbon Dioxide 25 mmol/L (22-29); Chloride 107 mmol/L (96-108); Cholesterol 209 mg/dL (<200); Estimated Glomerular Filt Rate > 60; HDL Cholesterol 73 mg/dL (>40); Magnesium 2.0 mg/dL (1.6-2.6); Potassium 4.2 mmol/L (3.3-5.1); Sodium 140 mmol/L (135-145); Total Protein 7.4 g/dL (6.5-8.0); Triglycerides 42 mg/dL (<150)
[2024-12-14 11:00] LABS: Appearance Urine Clear; Glucose Urine UA Negative (Negative); PH 7.5 (5.0-9.0); Specific Gravity - Urine <= 1.005 (1.005-1.025)
[2024-12-14 11:05] LABS: Vitamin B12 235 pg/mL (200-900)
[2024-12-14 11:50] LABS: Folate 10.7 ng/mL (> or = 4.0)
== END 2024-12-14 07:19 | disposition home or self-care (01) ==
LOC: HO.HMGCLDS 07:18
PROVIDERS: PCP Physician Assistant Medical; Visit Provider Physician Assistant Medical
DX: Z00.00 Encounter for general adult medical examination without abnormal findings (principal); Z13.1 Encounter for screening for diabetes mellitus; Z13.6 Encounter for screening for cardiovascular disorders; Z13.29 Encounter for screening for other suspected endocrine disorder; Z13.21 Encounter for screening for nutritional disorder
CPT/HCPCS: 36415; 80053; 80061; 80076; 81003; 82248; 82306; 82607; 82746; 83036; 83735; 84443; 85025; 86140

== ENCOUNTER 2025-01-07 09:04 | Outpatient (AMB) | payer BC, SELFPAY ==
--- NOTE | 2025-01-07 09:16 | A.OFFVIS_ITS ---
Vital Signs 01/07/25 09:18 Height 5 ft 5 in Weight 153 lb BMI 25.5 Intake Visit Reasons: Tinea Unguium Intake Note: Suzanne is a 49 year old female who presents today as a new patient for an evaluation of her right foot tinea unguium. She states this has been going for over 30 years and she has tried fungul creams and occitan and has found no relief for her symptoms. Allergies No Known Allergies Allergy (Verified 01/07/25 09:19) Medication List - Last Reconciled 01/07/25 by Leslie Sigala DPM lisinopril 5 mg PO DAILY oxymetazoline 1% (Rhofade) 1 appl topical QAM terbinafine HCl 250 mg PO DAILY HPI Comments Details: The patient is a 49 year old individual with a PMH as seen below presenting for evaluation of chronic toenail changes. The patient reports having an on-and-off steele with the toenails since [employer]. The patient notes that B/L halluces have been swollen for years and some nails have previously detached and regrown. The patient has previously tried multiple treatments without success, including vinegar, xafb-yjp-bgnhphm medicated topicals such as Tinactin, creams, and sprays. A prior prescription paint-on medication was also used but was found to be too difficult to maintain. The patient reports a history of significant alcohol consumption but has been abstinent for nearly two years. Recent lab work showed normal liver function levels. The patient reports no known drug allergies. She denies any other pedal concerns. [facility] Medical History (Updated 01/07/25 @ 09:30 by Leslie Sigala DPM) Nail disorder Nail dystrophy Hyperlipidemia Pure hypercholesterolemia, unspecified Cervical cancer screening declined (~12/03/24) Psoriasis Hypertension Annual physical exam Thyroid nodule Rosacea Colon cancer screening declined (~12/03/24) Mammogram declined (~12/03/24) Onychomycosis Family History Father BP (high blood pressure) CHF (congestive heart failure) Mother No problems noted. Social History Housing: House Alcohol intake: current Alcohol intake frequency: does not drink Patient Tobacco Use Status: Former Tobacco user service: No Current occupational status: employed Cognitive needs: No Hearing needs: No Vision needs: Yes (rx glasses) Review of Systems Const Details: - Integumentary: Reports chronic toenail changes, noting that some have previously detached and regrown. - Extremities: Reports swelling in bilateral halluces that has been present for years. All systems reviewed & are unremarkable except as noted in HPI and below Physical Exam Vital Signs: BMI result Body Mass Index 25.5 Extrem Other: Bilateral lower extremity focused physical exam: Derm: No open lesions abrasions or wounds noted. Toenails x10 noted to be dystrophic, discolored, and within normal length with subungual debris noted. No erythema, ecchymosis or discoloration noted. No clinical signs of infection noted. Skin supple and turgor within normal limits. Vascular: DP/PT pulses palpable. Capillary refill time less than 3 seconds. Temperature gradient warm to warm. Pedal hair absent. No varicosities noted. Neuro: Protective sensation is grossly intact. MSK: No pain on palpation to the forefoot. Rigid hammertoe deformities x10 noted. Claw toe of the hallux sees noted. Range of motion of the forefoot, hindfoot, and ankles within normal limits. No crepitus or fluctuance noted. Results Reviewed Results Reviewed: Laboratory Tests 12/14/24 07:26 AST 20 ALT 15 C-Reactive Protein 0.75 H Ordered labs to be obtained prior to next visit. Assessment & Plan Assessment & Plan (1) Onychomycosis: Code(s): B35.1 - Tinea unguium Category: Medical (2) Nail dystrophy: Code(s): L60.3 - Nail dystrophy Category: Medical (3) Nail disorder: Code(s): L60.9 - Nail disorder, unspecified Category: Medical Plan Patient was informed and verbally consented to the use of an ambient scribe for clinic note documentation during this visit. I discussed with the patient the chronic nature of the onychomycosis, which has been present since adolescence and has failed multiple topical therapies. I explained that given the failure of these treatments, oral antifungal therapy with terbinafine is the recommended next step. I reviewed the patient's recent lab work, noting that the liver function tests are within normal limits, making the patient a suitable candidate for this treatment. I outlined the treatment plan, which involves a 3 to 4-month course of terbinafine, starting with an initial one-month prescription. I explained the necessity of monitoring liver function with lab tests before each refill and discussed the potential risk of elevated liver enzymes. I informed the patient that if liver enzymes become significantly high, we would pause the medication until they return to normal. I advised the patient that filing the nails and continuing topical treatments are acceptable adjunctive measures that do not interfere with the oral medication. The patient understood the plan and agreed to proceed with oral terbinafine and schedule a one-month follow-up. - Prescribed terbinafine. - ordered labs to be obtained prior to next visit. - patient may continue application of topical treatments with filing in between applications. - Advised patient to keep feet clean and dry. - Advised patient to avoid barefoot walking and to wear supportive shoe gear. RTC in 1 month. Orders: Orders Comprehensive Met. Panel 01/07/25 B35.1 - Tinea unguium, L60.3 - Nail dystrophy, L60.9 - Nail disorder, unspecified Complete Blood Count Auto Diff 01/07/25 B35.1 - Tinea unguium, L60.3 - Nail dystrophy, L60.9 - Nail disorder, unspecified Medications: New terbinafine HCl 250 mg PO DAILY 30 tabs 0RF B35.1 - Tinea unguium, L60.3 - Nail dystrophy, L60.9 - Nail disorder, unspecified Coding Level of Care Code Tele New Pt Level 4 (05179) Diagnoses Onychomycosis B35.1 Nail dystrophy L60.3 Nail disorder L60.9 Time Spent (min) 46
[2025-01-07 09:18] VITALS: BMI 25.5
--- OUTSIDE RECORDS SUMMARY | 2025-01-07 10:33 | XMS_ITS | Clinical Summary ---
Author Organization [address] Address [address] [place] [phone] Phone Care Team Providers Care Medical Support Assistant Name Role Phone Danay Renteria MD Primary [...] 01/25/2022 Overview (12/13/2023): Refuses screening mammo and [employer] exam Psoriasis of scalp 09/30/2014 Overview (12/13/2023): Also ears, used to see Derm [place] Rosacea 09/30/2014 Overview (12/13/2023): controlled Encounters Date Type Department Care Team Description 11/12/2024 8:45 AM EDT Office Visit Orthopedic Surgery [facility] [address] [phone] Sebastián Johnson, DPM Metatarsalgia of left foot (Primary Dx); Eccrine poroma of foot, left; Pain in both feet 10/29/2024 9:15 AM EDT Office Visit Orthopedic Surgery [place] [id number] [phone] Sebastián Johnson, DPM Pain in both feet (Primary Dx); Metatarsalgia of left foot; Eccrine poroma of foot, left; Dermatophytosis, nail 10/24/2024 2:30 PM EDT Office Visit Orthopedic Surgery [facility] [address] [phone] Sebastián Johnson, DPM Pain in both feet [...] lly noncompliant; COMMENT: Refuses screening mammo and [employer]IST[employer] exam Essential hypertension 06/08/2023 DX:Essent ial hypertension [...] Years Used Date Smoking Tobacco: Former Cigarettes 0 Q uit: 02/07/2001 Smokeless Tobacco: Never Tobacco [...] care for your loved ones. For example, child care leader or elderly care for an older adult? [...] 07/25/2024 7:55 AM EDT Plan of Treatment Health Maintenance Due Date Last Done Comments [...] LAB CHEMISTRY METHOD 07/05/2024 1:10 PM EDT [facility] Triglycerides 78 0 - 150 mg/dL LAB CHEMISTRY METHOD 07/05/2024 1:10 PM EDT [facility] HDL 81 >=40 mg/dL LAB CHEMISTRY METHOD 07/05/2024 1:10 PM EDT [facility] LDL Calculated 120(H) 0 - 100 mg/dL LAB CHEMISTRY METHOD 07/05/2024 1:10 PM EDT [facility] VLDL Cholesterol Keo 15.6 mg/dL LAB CHEMISTRY METHOD 07/05/2024 1:10 PM EDT [facility] Non HDL Chol. (LDL+VLDL) 136 <145 mg/dL LAB CHEMISTRY METHOD 07/05/2024 1:10 PM EDT [facility] Chol/HDL Ratio 2.7 0.0 - 4.4 LAB CHEMISTRY METHOD 07/05/2024 1:10 PM EDT [facility] Blood Venous blood specimen / Unknown Venipuncture / Unknown 07/05/2024 9:46 AM EDT 07/05/2024 9:46 AM EDT us Danay Renteria MD LAB BLOOD ORDERABL ES Final Result [facility] [address] [place] [address], [place] [phone] * Comprehensive metabolic panel (07/05/2024 9:46 AM EDT) Sodium 140 133 - 145 mmol/L LAB CHEMISTRY METHOD 07/05/2024 1:01 PM [facility] Potassium 4.6 3.5 - 5.5 mmol/L LAB CHEMISTRY METHOD 07/05/2024 1:01 PM [facility] Chloride 105 96 - 110 mmol/L LAB CHEMISTRY METHOD 07/05/2024 1:01 PM [facility] CO2 29 21 - 32 mmol/L LAB CHEMISTRY METHOD 07/05/2024 1:01 PM [facility] Anion Gap 6 3 - 11 LAB CHEMISTRY METHOD 07/05/2024 1:01 PM [facility] Glucose 89 70 - 100 mg/dL LAB CHEMISTRY METHOD 07/05/2024 1:01 PM [facility] BUN 12 5 - 25 mg/dL LAB CHEMISTRY METHOD 07/05/2024 1:01 PM [facility] Creatinine 0.66 0.50 - 1.10 mg/dL LAB CHEMISTRY METHOD 07/05/2024 1:01 PM [facility] eGFR 109 >=60 mL/min/1. 73m2 LAB CHEMISTRY METHOD 07/05/2024 1:01 PM [facility] Comment:Calculation based on the Chronic Kidney Disease Epidemiology Collaboration (CKD-EPI) equation refit without adjustment for race. BUN/Creatinine Ratio 18.2 LAB CHEMISTRY METHOD 07/05/2024 1:01 PM [facility] Calcium 9.7 8.5 - 10.5 mg/dL LAB CHEMISTRY METHOD 07/05/2024 1:01 [facility] AST (SGOT) 17 10 - 42 unit/L LAB CHEMISTRY METHOD 07/05/2024 1:01 PM [facility] ALT (SGPT) 27 10 - 60 unit/L LAB CHEMISTRY METHOD 07/05/2024 1:01 PM [facility] Alkaline Phosphatase 74 42 - 121 unit/L LAB CHEMISTRY METHOD 07/05/2024 1:01 PM [facility] Total Protein 7.6 6.0 - 8.0 g/dL LAB CHEMISTRY METHOD 07/05/2024 1:01 PM EDT [facility] Albumin 4.1 3.2 - 5.0 g/dL LAB CHEMISTRY METHOD 07/05/2024 1:01 PM EDT [facility] Total Bilirubin 0.4 0.0 - 1.4 mg/dL LAB CHEMISTRY METHOD 07/05/2024 1:01 PM EDT [facility] Blood Venous blood specimen / Unknown Venipuncture / Unknown 07/05/2024 9:46 AM EDT 07/05/2024 9:46 AM EDT Danay Renteria MD LAB BLOOD ORDERABL ES Final Result [facility] [address] [place] [address], * Pap Smear (06/08/2013) Pap smear no interpretation , abstracted Historical Provider HEALTH MAINTENANCE Final Result from Last 3 Months or Most Recently Relevant to Health Maintenance Insurance [facility] Care Teams Medical Support Assistant Relationship Specialty Start Date End Date Danay Renteria MD [address] [place] [phone] PCP - General Internal Medicine 09/07/21
== END 2025-01-07 09:33 | disposition home or self-care (01) ==
LOC: HO.HPODS 09:05
PROVIDERS: PCP Physician Assistant Medical; Visit Provider Student in an Organized Health Care Education/Training Program
DX: B35.1 Tinea unguium (principal); L60.3 Nail dystrophy; L60.9 Nail disorder, unspecified
CPT/HCPCS: 99204